=== PATIENT | male | born 1960 | race Two or more races ===

== ENCOUNTER → 2019-10-21 | Outpatient (CLI) | payer OTHER ==
[~2019-10-21] MED LIST: IOHEXOL 350 MG/ML 100ML IJ ONE
[2019-10-21 10:00] LABS: BUN/Creatinine Ratio 13.2; Potassium 3.7 mmol/L (3.5-5.1)
== END | disposition home or self-care (01) ==
LOC: CT 09:01
DX: S22.42XA Multiple fractures of ribs, left side, initial encounter for closed fracture (principal); S37.092A Other injury of left kidney, initial encounter; N28.1 Cyst of kidney, acquired; J98.4 Other disorders of lung; K44.9 Diaphragmatic hernia without obstruction or gangrene; W34.09XA Accidental discharge from other specified firearms, initial encounter; X58.XXXA Exposure to other specified factors, initial encounter; Y93.89 Activity, other specified; Y92.89 Other specified places as the place of occurrence of the external cause; Y99.8 Other external cause status
CPT/HCPCS: 36415; 74178; 80048; Q9967